=== PATIENT | male | born 1965 ===

== ENCOUNTER 2022-11-19 17:08 | Inpatient (IN) | payer OTHER ==
[2022-11-19] MEDS ORDERED: HALOPERIDOL LACTATE 5 MG/ML 1 ML VIAL IM PRN (17:13)
[2022-11-19] MEDS ORDERED: LORazepam 2 MG/ML INJ IM PRN (17:13)
[2022-11-19] MEDS ORDERED: haloperidoL 5 MG TAB PO PRN (17:13)
[2022-11-19] MEDS ORDERED: MAGNESIUM HYDROXIDE 2,400 MG/10 ML CUP PO PRN (17:13)
[2022-11-19] MEDS ORDERED: MAG HYDROX/AL HYDROX/SIMETH 30 ML CUP PO PRN (17:13)
[2022-11-19] MEDS ORDERED: MIRTAZAPINE 15 MG TAB PO SCH (21:00)
[2022-11-20] MEDS: LORazepam 1 MG TAB PO PRN ×2 (04:13→21:55)
[2022-11-20] MEDS: FLECAINIDE 50 MG TAB PO SCH ×3 (04:20→21:41)
[2022-11-20] MEDS: NICOTINE 14MG/24HR PATCH TRANSDERM SCH (09:19)
[2022-11-20] MEDS: METOPROLOL SUCCINATE (ER) 25 MG TAB.ER.24H PO SCH (09:20)
--- NOTE | 2022-11-20 12:50 | P.HP ---
Psychiatric H&P - . H&P Date: 11/20/22 History & Physical: Allergies Allergy/AdvReac Type Severity Reaction Status Date / Time No Known Allergies Allergy Verified 11/19/22 17:13 Vital Signs Temp 96.7 F L 11/20/22 04:26 Pulse 65 11/20/22 08:00 Resp 18 11/20/22 04:26 BP 118/72 11/20/22 08:00 Pulse Ox FiO2 Intake & Output 11/19/22 11/20/22 11/20/22 18:59 06:59 18:59 Weight 69 kg 11/20/22 12:49 IDENTIFYING DATA: Patient is a single, unemployed, 56-year-old male who presented to our hospital from [facility] after an attempted suicide by overdose. HPI: Patient presented to the hospital on 11/19/2021, transferred from [facility] after overdosing on morphine, Ambien, and possibly Haldol. The patient overdosed on 11/03/2022 and after being in the ICU and medically treated, he was transferred to our psychiatric unit. This is also the patient's second suicide attempt since early October. The patient is agreeable to voluntary admission on to psychiatric unit. The patient reports that he has been feeling increasingly depressed since 2 years ago when he has had significant issues regarding sinus headaches. He endorses significant symptoms of depression including anhedonia, increased anxiety, poor sleep (approximating 1-2 hours of sleep per night), low energy, hopelessness, helplessness, decreased appetite, and suicidal ideation. He also reports that 3 weeks prior to his admission at [facility] he put a gun to his head. He reports that he was admitted to a psychiatric unit in [place] and was there for approximately 10-14 days. The patient also reports that he has been drinking heavily over the past few weeks in order to cope. He approximates drinking a half pint of liquor and 6 beers per day. In regards to other mood symptoms, the patient does not endorse any significant history of manic episodes. He denies any periods of excessive energy, grandiosity, or increased goal-directed activity. He is not endorsing any significant history of auditory or visual hallucinations. He reports no paranoia or other delusions. The patient reports that he is feeling increasingly stressed and depressed. He reports that because of his depression and suicide attempts, his relationship with his girlfriend Kitty whom he has been with for 12 years has been strained. The patient reports that he has tried numerous medications however has had multiple side effects, in particular worsening of his atrial fibrillation. The patient is agreeable to voluntary admission onto the psychiatric unit. PAST PSYCHIATRIC HISTORY: Patient states that he has been previously diagnosed with depression. He has trialed in the past Cymbalta, Remeron, Ambien, Zoloft, and Seroquel. The patient has had 1 prior inpatient psychiatric admission in October in [place]. Patient denies any psychiatric outpatient follow-up. The patient has had 2 suicide attempts over the past month. PMH: Atrial fibrillation, sleep apnea, T12 and C7 impingement ALLERGIES: NO KNOWN DRUG ALLERGIES CHEMICAL DEPENDENCY HISTORY: Patient denies any tobacco, marijuana, or illicit drug use. However, the patient did overdose on liquid morphine. The patient reports that he began drinking at the age of 16 however over the past few years has been drinking excessively. He approximates drinking a half pint of liquor and 6 beers per day. He reports that he went to rehab 2 years ago for alcohol. He reports that he plans to start AA. FAMILY PSYCHIATRIC/SUBSTANCE USE HISTORY: The patient reports that his brother has psychotic symptoms after he suffered serious head trauma. The patient also reports that his mother and father were alcoholics. SOCIAL HISTORY: Patient was born and raised in [place], [place]. He then relocated to [place] when he was 8 years old. He is single, never , and has no children. He has a girlfriend named Kitty whom he has been with for 12 years. He was previously living with Kitty however reports that he is unable to go back there upon discharge. 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 He reports a 10th grade education. MENTAL STATUS EXAM: General Appearance: Patient appears to be stated age is alert, directable, and attempts to cooperate. Patient appears to have slightly disheveled hygiene and grooming. Behavior: Patient is seated without any agitated behavior. Eye contact is appropriate. Psychomotor activity is normal. Speech: Patient's speech is fluent and nonpressured. Mood/Affect: Patient reports their mood is depressed, affect is congruent and withdrawn. Suicidality/Homicidality: Patient denies having any homicidal ideation intent or plan. Patient endorses suicidal ideation. Perceptions: Patient denies any visual hallucinations and denies any auditory piña llucinations Though content/process: There is no evidence of any delusional thought content and thought process is linear and goal-directed. Memory and concentration: AOX3, grossly intact for the purposes of this session. Can spell "WORLD" backwards Judgment and insight: poor STRENGTHS/WEAKNESSES: Strength is that the patient is resilient. Weakness is that the patient is very high risk with 2 serious suicide attempts over the past month. INTELLECT: average IMPRESSIONS: Major depressive disorder, recurrent, severe, without psychotic features Alcohol use disorder Rule out morphine use PLAN: -Patient is admitted under voluntary status to MHU for stabilization of psychiatric symptoms and safety. Patient signed adult voluntary form and medication consent and is placed in patient's chart. -Medications : Will start patient on Increase Remeron to 30 mg by mouth at bedtime for depression/insomnia/appetite Start melatonin 5 mg by mouth at bedtime for insomnia -Ativan and Haldol PRN for agitation/aggression -Patient was counselled on substance abuse and desired to cut back on use -Patient was informed of the risks, benefits and side effects of the medication and patient verbally consented to taking the medications. Patient signed med consent form and was placed in chart. -Internal Medicine consult to perform medical evaluation and physical. -SW on board for discharge planning. Encourage patient to participate in groups to work on coping skills. 11/20/22 12:50
[2022-11-20] MEDS: MELATONIN 5 MG TABLET PO SCH (21:41)
[2022-11-20] MEDS: MIRTAZAPINE 15 MG TAB PO SCH (21:41)
[2022-11-21] MEDS: NICOTINE 14MG/24HR PATCH TRANSDERM SCH (09:25)
[2022-11-21] MEDS: METOPROLOL SUCCINATE (ER) 25 MG TAB.ER.24H PO SCH (09:26)
[2022-11-21] MEDS: FLECAINIDE 50 MG TAB PO SCH ×2 (09:26→20:28)
--- NOTE | 2022-11-21 14:27 | P.PN ---
Progress Note - Text Progress Note Date: 11/21/22 Interval History: Patient was seen wandering the hallways and was directable and agreeable to speak with show card writer in the office. Currently, the patient is reporting that he is feeling better. He does state that he does feel tired however this exhaustion that he is feeling is different from the exhaustion that he was feeling prior to admission. He is currently not endorsing any suicidal or homicidal ideation, intention, and/or plan. He is not reporting any auditory or visual hallucinations. He denies any paranoia or other delusions. He has been adherent with his medication and only reports mild sedation as a side effect. He has been attending groups with the high-level participation. He engages in martial arts exercises in his room. He reports that he would likely be staying with a friend upon discharge. Mental Status Exam: General Appearance: Patient appears to be stated age is alert, directable, and cooperative. Behavior: Patient is calmly seated without any agitated behavior. Speech: Patient's speech is fluent and nonpressured. Mood/Affect: Mood is improving mildly, affect is congruent and constricted. Suicidality/Homicidality: Patient denies having any suicidal or homicidal ideation intent or plan. Perceptions: Patient denies any visual hallucinations and denies any auditory hallucinations Though content/process: There is no evidence of any delusional thought content and thought process is linear and goal-directed. Memory and concentration: AOX3, grossly intact for the purposes of this session Judgment and insight: Improving mildly Vital Signs Temp 97.3 F L 11/21/22 06:38 Pulse 46 L 11/21/22 06:38 Resp 14 11/21/22 06:38 BP 103/56 11/21/22 06:38 Pulse Ox 95 11/21/22 06:38 FiO2 Assessment Major depressive disorder, recurrent, severe, without psychotic features Alcohol use disorder Plan: -Patient continues to meet criteria for inpatient psychiatric admission for symptom stabilization and safety. Patient has signed adult voluntary form and medication consent and was placed in patient's chart. -Medications: Remeron 30 mg by mouth at bedtime for depression Melatonin 5 mg daily at bedtime for depression/insomnia -When necessary Ativan and Haldol for agitation/aggression. -SW on board for discharge planning. Encouraged the patient to participate in milieu.
--- NOTE | 2022-11-21 18:32 | P.MDCNMH ---
<Edmond Allen - Last Filed: 11/21/22 18:18> History of Present Illness H&P Date: 11/21/22 History of Presenting Illness: Patient is a very pleasant 56-year-old male with a past medical history of depression, previous suicidal attempts, alcohol abuse and atrial fibrillation on metoprolol and second night for rate/rhythm control and no longer on anticoagulation stating the pig farmer took him off. He is currently admitted to inpatient psychiatric unit and we have been consulted for medical H&P. Patient seen and fully evaluated at mental health unit. Patient reports he feels he is doing well. Patient states he has been at our facility for 2 days after being transferred from [facility] He was admitted on 11/03/22 requiring ICU admission due to a reported intentional overdose on morphine, Haldol, and Ativan. Patient reports his first suicide attempt occurred approximately 2 weeks before [facility] and 3 days after he was discharged from inpatient psychiatric unit he again attempted to take his life. Patient reports he has battled alcoholism and has been having difficulties in his personal life with his girlfriend. Patient states depression took over him and he is aware that he needs to make life changes. Currently patient continues to report feeling down and depressed and fatigued. He denies currently wanting to end his life, but admits that he is not able to return home with his girlfriend and repeated pattern. Patient denies having any other drug use and denies nicotine use. Patient currently denies having any complaints including headache, lightheadedness, dizziness, chest pain, palpitations, shortness of breath, abdominal pain, nausea, vomiting, or experiencing any numbness/tingling/weakness/swelling in his extremities. Patient denies having any homicidal ideations and denies having any visual or auditory hallucinations. Patient reports his last drink of alcohol was approximately one month ago when he made his first suicidal attempt but states he was previously drinking half a pint of liquor daily +6-8 beers. Review of systems: Pertinent positives and negatives as discussed in HPI, a complete review of systems was performed and all other systems are negative. Physical exam: Vital signs reviewed and stable. General: Nontoxic, no distress and appears stated age. Derm: Skin warm and dry, normal coloration for ethnicity. Head: Atraumatic, normocephalic and symmetric. Eyes: EOMs intact, no lid lag, and anicteric sclera Mouth: no lip lesions, mucus membranes moist Cardiovascular: regular rate and rhythm with normal S1S2, no murmur, positive posterior tibial pulses bilaterally, and cap refill < 2 seconds. Lungs: Respirations even, regular, and unlabored on room air. Lungs CTA bilaterally, no rhonchi, no rales, no wheezing, and no accessory muscle usage. Abdominal: soft, nontender to palpation, no guarding, no appreciable organomegaly Ext: ROM intact. No gross muscle atrophy, no edema, no contractures Neuro: Speech clear, face symmetrical and CN II-XII grossly intact with no noted focal neuro deficits Psych: Alert and oriented to person, place, time, and situation. Depressed affect. Assessment and Plan of Care: Paroxysmal atrial fibrillation -Patient currently maintaining sinus mechanism, recommend continuation of daily flecainide and metoprolol. -Patient not on anticoagulation, [id number] score of 1, will defer future anticoagulation and to pig farmer upon outpatient follow-up. Alcohol abuse -Patient reports last alcoholic drink being approximately one month ago and plans to attend AA upon discharge. -Strongly encourage and recommend inpatient drug and alcohol rehab versus AA and additional community support groups/resources upon discharge. Suicidal attempts Depression uncontrolled -Patient has had 2 suicidal attempts in the last month with the most recent attempt requiring ICU admission. -Maintain safety and suicide precautions at all times. -Management per primary admitting psychiatric team including medication management. Thank you for allowing us to participate in the care of this pleasant patient. Do not hesitate to contact us with questions. Someone can be reached from the [facility] hospitalist group all hours of the day at [phone] or via [employer]. Medications and Allergies Allergies Allergy/AdvReac Type Severity Reaction Status Date / Time No Known Allergies Allergy Verified 11/19/22 17:13 Physical Exam Vitals: Vital Signs Temp Pulse Resp BP Pulse Ox 11/21/22 06:38 97.3 F L 46 L 14 103/56 95 Cranial Nerve Examination - Cranial Nerves Cranial Nerve II- Optic: Intact Cranial Nerve III- Oculomotor: Intact Cranial Nerve IV- Trochlear: Intact Cranial Nerve V- Trigeminal: Intact Cranial Nerve - Abducens: Intact Cranial Nerve VII- Facial: Intact Cranial Nerve VIII- Auditory: Intact Cranial Nerve IX- Glossopharyngeal: Intact Cranial Nerve X- Vagus: Intact Cranial Nerve XI- Accessory: Intact Cranial Nerve XII- Hypoglossal: Intact <Maureen Bradford - Last Filed: 11/21/22 19:01> History of Present Illness Edmond Allen NP rendered care for this patient independently, reviewed the findings and plan as documented in the note above. I did not physically speak with or examine the patient on this date. Physical Exam Osteopathic Statement: *. No significant issues noted on an osteopathic structural exam other than those noted in the History and Physical/Consult. Vitals: Vital Signs Temp Pulse Resp BP Pulse Ox 11/21/22 08:00 80 112/70 11/21/22 06:38 97.3 F L 46 L 14 103/56 95
[2022-11-21] MEDS: MELATONIN 5 MG TABLET PO SCH (20:27)
[2022-11-21] MEDS: MIRTAZAPINE 15 MG TAB PO SCH (20:28)
[2022-11-21] MEDS: LORazepam 1 MG TAB PO PRN (20:29)
[2022-11-22] MEDS: FLECAINIDE 50 MG TAB PO SCH ×2 (09:01→19:46)
[2022-11-22] MEDS: METOPROLOL SUCCINATE (ER) 25 MG TAB.ER.24H PO SCH (09:02)
[2022-11-22] MEDS: NICOTINE 14MG/24HR PATCH TRANSDERM SCH (09:04)
--- NOTE | 2022-11-22 11:46 | P.PN ---
Progress Note - Text Progress Note Date: 11/22/22 Interval History: Patient was seen wandering the hallways and was directable and agreeable to speak with web content writer in the office. Currently, the patient is reporting that he is feeling better but continues to express that he feels somewhat sedated. He is currently not reporting any suicidal or homicidal ideation, intention, and/or plan. He reports that he has significant support from friends and that he is arranging rides with him nor to return home on Friday. He reports no auditory or visual hallucinations. He denies any paranoia or delusions. He has been attending groups high-level participation. He is in agreement to raising his Remeron. Mental Status Exam: General Appearance: Patient appears to be stated age is alert, directable, and cooperative. Behavior: Patient is calmly seated without any agitated behavior. Speech: Patient's speech is fluent and nonpressured. Mood/Affect: Mood is improving mildly, affect is congruent and constricted. Suicidality/Homicidality: Patient denies having any suicidal or homicidal ideation intent or plan. Perceptions: Patient denies any visual hallucinations and denies any auditory hallucinations Though content/process: There is no evidence of any delusional thought content and thought process is linear and goal-directed. Memory and concentration: AOX3, grossly intact for the purposes of this session Judgment and insight: Improving mildly Vital Signs Temp 97.7 F 11/22/22 06:36 Pulse 80 11/22/22 06:36 Resp 16 11/22/22 06:36 BP 150/85 11/22/22 06:36 Pulse Ox 95 11/21/22 06:38 FiO2 Assessment Major depressive disorder, recurrent, severe, without psychotic features Alcohol use disorder Plan: -Patient continues to meet criteria for inpatient psychiatric admission for symptom stabilization and safety. Patient has signed adult voluntary form and medication consent and was placed in patient's chart. -Medications: Increase Remeron to 45 mg by mouth at bedtime for depression - low doses of Remeron tends to be more sedating than higher doses. We will see how the patient tolerates a higher dose of Remeron due to his concerns for sedation Melatonin 5 mg daily at bedtime for depression/insomnia -When necessary Ativan and Haldol for agitation/aggression. -SW on board for discharge planning. Encouraged the patient to participate in milieu.
[2022-11-22] MEDS: MELATONIN 5 MG TABLET PO SCH (19:46)
[2022-11-22] MEDS: MIRTAZAPINE 45 MG TABLET PO SCH (19:46)
[2022-11-22] MEDS: LORazepam 1 MG TAB PO SCH (19:46)
[2022-11-23] MEDS: FLECAINIDE 50 MG TAB PO SCH ×2 (09:16→20:12)
[2022-11-23] MEDS: NICOTINE 14MG/24HR PATCH TRANSDERM SCH (09:16)
--- NOTE | 2022-11-23 16:50 | P.PN ---
Subjective Progress Note Date: 11/23/22 Dane blankenship He was seen today for review of progress. He maintained his rpogress with no craving for alcohol. He tolerated Remeron dosage increase with no side effect compalint. HE reported improved mental status with no compalint of adverse events.No protracted aclohol withdrawal symptoms No hallucinsois. His mood symptoms seemed to have improved. Regarding his alcohol use, he admitted this has complciated his mood symptoms RE: Major depression morbid alcohol use disorder moderate severitiy MSE: he was pleasant and talked freely about his progress. He was not preoccupied with his alcohol use or the negative impact of his depressive symptoms. His affect euthymic congruent with histhougth content. No hallucinatons No delusions. No suicidal or homicidal ideations. Cognition: oriented Insight and judgment has improved. Management Plan 1. discharge plan in [facility]: support system to be reinforced 2. Cotninue on current Rx 3. Plan for alcohol rehabilitation and AA partcipation would be necessary 4. Reassess tomorrow to see if his gains were maintinaed Objective - Vital Signs Vital signs: Vital Signs Temp 98.6 F 11/23/22 06:00 Pulse 109 H 11/23/22 09:16 Resp 17 11/23/22 06:00 BP 118/60 11/23/22 06:00 Pulse Ox 98 11/23/22 06:00 FiO2 Intake & Output 11/22/22 11/23/22 11/23/22 18:59 06:59 18:59 Weight 69 kg
[2022-11-23] MEDS: MIRTAZAPINE 45 MG TABLET PO SCH (20:12)
[2022-11-23] MEDS: LORazepam 1 MG TAB PO SCH (20:12)
[2022-11-23] MEDS: MELATONIN 5 MG TABLET PO SCH (20:12)
[2022-11-24] MEDS: FLECAINIDE 50 MG TAB PO SCH ×2 (08:49→20:12)
[2022-11-24] MEDS: METOPROLOL SUCCINATE (ER) 25 MG TAB.ER.24H PO SCH (08:49)
[2022-11-24] MEDS: NICOTINE 14MG/24HR PATCH TRANSDERM SCH (09:25)
[2022-11-24] MEDS: ACETAMINOPHEN TAB 325 MG TAB PO PRN ×2 (13:30→20:12)
[2022-11-24] MEDS: MIRTAZAPINE 45 MG TABLET PO SCH (20:12)
[2022-11-24] MEDS: MELATONIN 5 MG TABLET PO SCH (20:13)
[2022-11-24] MEDS: LORazepam 1 MG TAB PO SCH (20:13)
[2022-11-25 07:03] VITALS: RESP 14; TEMP 98
[2022-11-25] MEDS: ACETAMINOPHEN TAB 325 MG TAB PO PRN (07:12)
[2022-11-25] MEDS: FLECAINIDE 50 MG TAB PO SCH (09:37)
[2022-11-25] MEDS: METOPROLOL SUCCINATE (ER) 25 MG TAB.ER.24H PO SCH (09:37)
[2022-11-25 09:39] VITALS: BP 111/78; PULSE 92
--- NOTE | 2022-11-25 11:13 | P.DS ---
Providers Date of admission: 11/20/22 03:52 Expected date of discharge: 11/25/22 Attending physician: Ricky Stuart MD Consults: 11/19/22 17:13 Consult Physician Routine Consulting Provider: Delma Masterson Consult Reason/Comments: H & P W/ MEDICAL MANAGEMENT Do you want consulting provider notified?: Yes, Notify in am Primary care physician: Stated None - Discharge Diagnosis(es) (1) Major depressive disorder, recurrent, severe without psychotic features Current Visit: Yes Status: Acute Priority: High (2) Alcohol use disorder Current Visit: Yes Status: Chronic Priority: Medium Hospital Course: Admission HPI: Patient is a single, unemployed, 56-year-old male who presented to our hospital from [facility] after an attempted suicide by overdose. Patient presented to the hospital on 11/19/2021, transferred from [facility] after overdosing on morphine, Ambien, and possibly Haldol. The patient overdosed on 11/03/2022 and after being in the ICU and medically treated, he was transferred to our psychiatric unit. This is also the patient's second suicide attempt since early October. The patient is agreeable to voluntary admission on to psychiatric unit. The patient reports that he has been feeling increasingly depressed since 2 years ago when he has had significant issues regarding sinus headaches. He endorses significant symptoms of depression including anhedonia, increased anxiety, poor sleep (approximating 1-2 hours of sleep per night), low energy, hopelessness, helplessness, decreased appetite, and suicidal ideation. He also reports that 3 weeks prior to his admission at [facility] he put a gun to his head. He reports that he was admitted to a psychiatric unit in [place] and was there for approximately 10-14 days. The patient also reports that he has been drinking heavily over the past few weeks in order to cope. He approximates drinking a half pint of liquor and 6 beers per day. In regards to other mood symptoms, the patient does not endorse any significant history of manic episodes. He denies any periods of excessive energy, grandiosity, or increased goal-directed activity. He is not endorsing any significant history of auditory or visual hallucinations. He reports no paranoia or other delusions. The patient reports that he is feeling increasingly stressed and depressed. He reports that because of his depression and suicide attempts, his relationship with his girlfriend Kitty whom he has been with for 12 years has been strained. The patient reports that he has tried numerous medications however has had multiple side effects, in particular worsening of his atrial fibrillation. The patient is agreeable to voluntary admission onto the psychiatric unit. Patient states that he has been previously diagnosed with depression. He has trialed in the past Cymbalta, Remeron, Ambien, Zoloft, and Seroquel. The patient has had 1 prior inpatient psychiatric admission in October in [place]. Patient denies any psychiatric outpatient follow-up. The patient has had 2 suicide attempts over the past month. Hospital course: Upon admission to the unit patient was initially prseented as depressed, withdrawn, and dysphoric. Patient was however directable and agreeable to commence treatment. Patient got along well with other patients on the unit and followed unit protocol. Patient was compliant with the medications and denied any side effects throughout hospital course. Patient was started on remeron for depression/insomnia/appetite and melatonin for insomnia. Patient spoke of his stressors and engaged in therapy both group and individual. Patient was also seen by medical team for history and physical exam. Over the course of his hospitalization, the patient participated in safety planning and cognitive behavioral therapy with this provider. His remeron was titrated to further address his depression. On this regimen, the patient displayed gradual but significant improvement in regards to mood. He became more future and goal- oriented. He developed better insight and judgement. On the day of discharge, the patient is vehemently denying any suicidal or homicidal ideation, intention, and/or plan. He reports no access to firearms or other weapons. He states the last firearm he used in a suicide attempt is locked in a safe with a friend. He reports a desire to live for himself and his loved ones. He reports no auditory or visual hallucinations. Denies any paranoia or other delusions. Patient does have a significant history of substance abuse however was counseled on great length on abstaining from all substances including alcohol, tobacco, marijuana, and illicit drug use. Patient was offered however declined inpatient substance- abuse rehabilitation. The patient was counseled to drink on his medications the need for regular compliance and was encouraged to follow-up with his appointments in outpatient setting. Mental status exam: General Appearance: Patient appears to be stated age is alert, pleasant, and cooperative. Patient is in no acute distress and has fair hygiene and grooming Behavior: Patient is calmly seated without any agitated behavior. Speech: Patient's speech is fluent and nonpressured. Mood/Affect: Patient reports their mood is "much better", affect is congruent and euthymic to bright. Suicidality/Homicidality: Patient denies having any suicidal or homicidal ideation intent or plan. Perceptions: Patient denies any auditory or visual hallucinations. Though content/process: There is no evidence of any delusional thought content and thought process is linear and goal-directed. Patient is future oriented Memory and concentration: AOX3, grossly intact for the purposes of this session. Can spell "WORLD" backwards correctly. Judgment and insight: Improved with guarded prognosis Impression: Major depressive disorder, recurrent, severe, without psychotic features Alcohol use disorder Plan: -Continue with discharge today as patient has improved and stabilized psychiatrically and is not currently an imminent threat to himself and/or others. Patient will remain at chronically elevated risk due to his age, gender, alcohol use, and 2 previous serious attempts at suicide. However, the patient is future and goal oriented in his depressive symptoms have been addressed while admitted on to the psychiatric unit. He engaged in safety planning prior to discharge. -Continue medications: Remeron 45 mg by mouth at bedtime for depression/insomnia Melatonin 5 mg by mouth at bedtime for insomnia Ativan 2 mg by mouth at bedtime when necessary for insomnia 7 days Medical medications will be discharged with patient include metoprolol and flecainide. Patient was advised to follow-up with his outpatient medical provider for further refills of his medications. -Patient was counseled on the need for medication compliance and appropriate follow-up at mental health and also primary care for medical issues. Patient verbalized understanding and agreed. -Social work to arrange for and conduct family meeting to ensure safety upon discharge and answer any questions/concerns. Social work also to arrange for patients follow up appointments [facility] counseling for psychiatric care along with follow up with primary care provider. -Patient counseled on abstaining from recreational drugs and marijuana and alcohol. Was informed/educated on the adverse effects on their physical and mental health. Patient verbally agreed and understood. Patient was offered substance abuse treatment however declined at this time. -Patient was instructed to return to the hospital or seek immediate medical care if their psychiatric or medical symptoms do worsen or reoccur. -Psychoeducation and supportive therapy provided to patient. Risks and benefits of pharmacological treatment versus the risks and benefits of nontreatment weight and discussed. Informed consent discussion held. Common side effects of psychotropics discussed such as, but not limited to headache, GI disturbance, sexual dysfunction, movement disorders, sedation, and orthostatic hypotension. Life threatening and blackbox warnings of prescribed medications also discussed. Potential risks of operating a vehicle or heavy machinery discussed with patient at length. Advised on importance of compliance and a reliable and responsible manner. Patient advised to review FDA consumer labeling of all medications prior to taking. Patient verbalized understanding of potential risks, and agrees with current treatment plan. Patient advised to medically contact physician/emergency personnel if any acute changes in condition occur. Vital Signs Temp 98 F 11/25/22 06:37 Pulse 92 11/25/22 09:38 Resp 14 11/25/22 06:37 BP 111/78 11/25/22 09:38 Pulse Ox 95 11/25/22 06:37 FiO2 Allergies Allergy/AdvReac Type Severity Reaction Status Date / Time No Known Allergies Allergy Verified 11/22/22 11:47 Patient Condition at Discharge: Stable Plan - Discharge Summary Discharge Rx Participant: No New Discharge Prescriptions: New LORazepam [Ativan] 2 mg PO HS PRN 7 Days tab PRN Reason: Insomnia Mirtazapine [Remeron] 45 mg PO HS 30 Days tab Flecainide [Tambocor] 100 mg PO Q12HR 15 Days tab Melatonin 5 mg PO HS 30 Days tab Metoprolol Succinate (ER) [Toprol XL] 25 mg PO DAILY 15 Days tab Continue Fluticasone Nasal Latexo [Flonase Nasal Latexo] 2 spray EA NOSTRIL DAILY Discharge Medication List Fluticasone Nasal Latexo [Flonase Nasal Latexo] 2 spray EA NOSTRIL DAILY 11/23/22 [History] Flecainide [Tambocor] 100 mg PO Q12HR 15 Days tab 11/25/22 [Rx] LORazepam [Ativan] 2 mg PO HS PRN 7 Days tab 11/25/22 [Rx] Melatonin 5 mg PO HS 30 Days tab 11/25/22 [Rx] Metoprolol Succinate (ER) [Toprol XL] 25 mg PO DAILY 15 Days tab 01/16/23 [Rx] Mirtazapine [Remeron] 45 mg PO HS 30 Days tab 11/25/22 [Rx] Follow up Appointment(s)/Referral(s): [facility] [Other] - 11/29/22 1:30 pm (Dr Leos) [facility] [place] - 1 [place] Patient Instructions/Handouts: Depression (DC), Abuse of Alcohol (DC), Alcohol Withdrawal (DC), Help Prevent Suicide (DC) Activity/Diet/Wound Care/Special Instructions: Avoid the use of street drugs and alcohol. Take all prescriptions as prescribed. When you are in need of refills on your medications, please contact your medical provider and/or outpatient psychiatrist to have this done. Please go to scheduled outpatient appointment for aftercare treatment. If symptoms return or become worse, call the crisis line at and/or go to the nearest emergency room for evaluation Discharge Disposition: HOME SELF-CARE
== END 2022-11-25 13:16 | disposition home or self-care (01) | DRG 918 ==
LOC: 3MHU 11-20 03:52
PROVIDERS: ADMIT Psychiatry & Neurology Psychiatry; ATTEND Psychiatry & Neurology Psychiatry
DX: T40.2X2A Poisoning by other opioids, intentional self-harm, initial encounter (principal); F33.2 Major depressive disorder, recurrent severe without psychotic features; R45.851 Suicidal ideations; I48.91 Unspecified atrial fibrillation; G47.00 Insomnia, unspecified; F10.20 Alcohol dependence, uncomplicated; I48.0 Paroxysmal atrial fibrillation; Z79.899 Other long term (current) drug therapy; Z71.41 Alcohol abuse counseling and surveillance of alcoholic